=== PATIENT | female | born 1950 | race Caucasian/White ===

== ENCOUNTER 2024-12-04 06:23 | Day surgery (SDC) | payer MEDICARE ==
[2024-12-01 11:02] LABS: BASOPHILS % (AUTO) 0.5 % (0-1); EOSINOPHILS # (AUTO) 0.1 X10'3 (0-0.9); EOSINOPHILS % (AUTO) 1.2 % (0-6); LYMPHOCYTES # (AUTO) 2.4 X10'3 (1.1-4.8); LYMPHOCYTES % (AUTO) 33.1 % (21-51); MEAN CORPUSCULAR HEMOGLOBIN 28.1 PG (27.0-31.0); MEAN CORPUSCULAR HGB CONC 32.5 g/dL (33.0-36.5); MEAN CORPUSCULAR VOLUME 86.3 FL (78-98); MEAN PLATELET VOLUME 8.4 FL (7.4-10.4); MONOCYTES # (AUTO) 0.4 X10'3 (0-0.9); MONOCYTES % (AUTO) 5.7 % (2-12); NEUTROPHILS # (AUTO) 4.2 X10'3 (1.8-7.7); NEUTROPHILS % (AUTO) 59.5 % (42-75); PRE OP HEMATOCRIT 42.7 % (35.0-45.0); PRE OP HEMOGLOBIN 13.9 g/dL (12.0-16.0); PRE OP PLATELET COUNT 243 X10'3 (140-440); PRE OP WHITE BLOOD COUNT 7.1 10'3 (4.8-10.8); RED BLOOD COUNT 4.95 X10'6 (4.20-5.60); RED CELL DISTRIBUTION WIDTH 16.1 % (11.5-14.5)
[2024-12-01 11:41] LABS: ALBUMIN/GLOBULIN RATIO 0.7 (1.1-1.5); ALKALINE PHOSPHATASE 67 IU/L (46-116); BLOOD UREA NITROGEN 19 MG/DL (7-18); BUN/CREATININE RATIO 25.3 (10.0-20.0); CHLORIDE 101 MMOL/L (99-107); CREATININE 0.75 MG/DL (0.40-0.90); PRE OP ALT 19 U/L (30-65); PRE OP ANION GAP 8 (8-16); PRE OP AST 16 U/L (10-37); PRE OP BILIRUB, TOTAL 0.4 MG/DL (0.0-1.0); PRE OP GLUCOSE 101 MG/DL (70-104); PRE OP SODIUM 141 MMOL/L (135-145); TOTAL CARBON DIOXIDE 32.4 MMOL/L (24-32); TOTAL PROTEIN 7.4 G/DL (6.4-8.2); eGFR 75 ML/MIN
[2024-12-04] VITALS (10 sets, daily range): BP systolic 110–195; BP diastolic 61–90; PULSE 81–116; RESP 12–21; TEMP 98.8; O2SAT 90–97
[~2024-12-04] VITALS: Ht 170.2 cm; Wt 82.5 kg
[~2024-12-04 06:23] MED LIST: ACET-2778 PO; ALBU2.5V10 NEB; AMLO-708 PO; ATOR10TA70 PO; CHOL20002 PO; FLUT1BLS13 PO; GABA300C PO; IBUP-24 PO; LEVO100T9 PO; LEVO88TA2 PO; OMEP20CA16 PO
[2024-12-04] MEDS: famotidine 20mg tablet PO ONE (06:58)
[2024-12-04] MEDS: ringers solution, lacted 1,000 ML IV SCH (07:00)
[2024-12-04] MEDS ORDERED: fentaNYL/PF 50MCG/1 ML 2ML syringe ONE (07:39)
[2024-12-04] MEDS ORDERED: midazolam 1 mg/ML 2ml injection ONE (07:39)
[2024-12-04] MEDS ORDERED: propofol inj 20 ML IV ONE (07:40)
[2024-12-04] MEDS ORDERED: morphine 2 MG/ML inj. syringe IV PRN (07:45)
[2024-12-04] MEDS ORDERED: ringers solution, lacted 1,000 ML IV SCH (07:45)
[2024-12-04] MEDS ORDERED: morphine 4 MG/ML inj SYRINge IV PRN (07:45)
[2024-12-04] MEDS ORDERED: meperidine/PF 25mg/ml syringe IV PRN ×3 (07:45)
[2024-12-04] MEDS ORDERED: ondansetron/PF 4mg/2ml inj IV PRN (07:45)
[2024-12-04] MEDS ORDERED: labetalol 20mg/4ml (5mg/ml) syringe IV PRN (07:45)
[2024-12-04] MEDS ORDERED: proCHLORperazine 10 MG/2 ml inj IV PRN (07:45)
[2024-12-04] MEDS ORDERED: rocuronium 10mg/ml inj IV ONE (07:52)
[2024-12-04] MEDS ORDERED: dexamethasone sod phosphate 4mg/ml inj. ONE (07:53)
[2024-12-04] MEDS ORDERED: sevoflurane 250ml liquid IH ONE (07:56)
[2024-12-04] MEDS ORDERED: ondansetron/PF 4mg/2ml inj ONE (08:35)
[2024-12-04] MEDS ORDERED: neostigmine methylsulfate 1 MG/ML 10ml vial ONE (08:36)
[2024-12-04] MEDS ORDERED: glycopyrrolate 0.2mg/ml inj ONE (08:36)
[2024-12-04] MEDS ORDERED: sugammadex 200mg/2ml injection IV ONE (09:07)
== END 2024-12-04 10:28 | disposition home or self-care (01) ==
LOC: PAS 06:23
PROVIDERS: ATTEND Internal Medicine Critical Care Medicine
DX: R91.8 Other nonspecific abnormal finding of lung field (principal); I11.0 Hypertensive heart disease with heart failure; I50.9 Heart failure, unspecified; J43.9 Emphysema, unspecified; K21.9 Gastro-esophageal reflux disease without esophagitis; F17.210 Nicotine dependence, cigarettes, uncomplicated; E03.9 Hypothyroidism, unspecified; Z90.49 Acquired absence of other specified parts of digestive tract; Z90.12 Acquired absence of left breast and nipple; Z98.890 Other specified postprocedural states; Z79.899 Other long term (current) drug therapy
CPT/HCPCS: 31627; 31628; 31629; 31653; 36415; 71250; 80053; 82948; 85025; 87015; 87070; 87116; 87206; 88341; 88342; 93005; A4615; A4618; J1100; J2250; J2405; J2704; J2710; J3010; J3490; J7120; Z7506; Z7508; Z7512; Z7610; 31622; 31624; 31625; 31626; 31654; 88173; 88305